=== PATIENT | male | born 1990 | race African-American/Black ===

== ENCOUNTER 2018-02-23 23:19 | Emergency (ER) | payer SELFPAY ==
[2018-02-23 23:26] VITALS: BP 126/85; PULSE 81; TEMP 98.1; BMI 21.9
--- NOTE | 2018-02-24 00:03 | PDOC ---
History of Present Illness - General Chief Complaint: Pain, Acute Stated Complaint: KNEE INJURY Time Seen by Provider: 02/23/18 23:57 History Source: Patient Exam Limitations: No Limitations Past History - Past Medical History Allergies/Adverse Reactions: Allergies Allergy/AdvReac Type Severity Reaction Status Date / Time No Known Allergies Allergy Verified 02/23/18 23:26 Home Medications: Ambulatory Orders Ondansetron [Zofran Odt -] 4 mg SL TID #10 od.tablet 03/10/15 Ibuprofen 600 mg PO QID PRN #28 tablet 02/24/18 Ibuprofen [Motrin -] 600 mg PO TID PRN #90 tablet MDD 3 02/24/18 - Suicide/Smoking/Psychosocial Hx Smoking Status: No Smoking History: Never smoked Have you smoked in the past 12 months: No Number of Cigarettes Smoked Daily: 4 Information on smoking cessation initiated: No 'Breaking Loose' booklet given: 09/24/13 Hx Alcohol Use: No Drug/Substance Use Hx: No Substance Use Type: Marijuana *Physical Exam - Vital Signs Last Vital Signs Temp Pulse Resp BP Pulse Ox 98.1 F 81 18 126/85 100 02/23/18 23:23 02/23/18 23:23 02/23/18 23:23 02/23/18 23:23 02/23/18 23:23 Moderate Sedation - Procedure Monitoring Vital Signs: Procedure Monitoring Vital Signs Temperature 98.1 F 02/23/18 23:23 Pulse Rate 81 02/23/18 23:23 Respiratory Rate 18 02/23/18 23:23 Blood Pressure 126/85 02/23/18 23:23 O2 Sat by Pulse Oximetry (%) 100 02/23/18 23:23 *DC/Admit/Observation/Transfer Diagnosis at time of Disposition: Knee pain Qualifiers: Chronicity: unspecified Laterality: left Qualified Code(s): M25.562 - Pain in left knee - Discharge Dispostion Disposition: HOME Decision to Admit order: No - Prescriptions Prescriptions: Ibuprofen 600 mg PO QID PRN #28 tablet PRN Reason: Pain Ibuprofen [Motrin -] 600 mg PO TID PRN #90 tablet MDD 3 PRN Reason: Pain - Referrals Referrals: Earlene Bucio MD [Primary Care Provider] - Ashok Fall MD [Staff Physician] - - Patient Instructions Printed Discharge Instructions: Knee Sprain Additional Instructions: you should follow up wtih an orthopedist. call to schedule. see referral information for dr. Fall. take motrin 600 mg every 8 hrs as needed for pain. wear immobilizer for support and comfort. use crutches as needed, return for any problems or concerns. - Post Discharge Activity Forms/Work/School Notes: Back to Work
--- NOTE | 2018-02-24 00:04 | PDOC ---
Attending Attestation - Resident Resident Name: [email or web address] - ED Attending Attestation I have performed the following: I have examined & evaluated the patient, The case was reviewed & discussed with the resident, I agree w/resident's findings & plan, Exceptions are as noted - HPI HPI: 02/24/18 00:56 27 yo M s/p injury to left knee. pt was doing a dance move called needle and thread, and fell on his leftknee. twisted and landed on it. now ambulating with pain. no associated eccymosis or swelling. did not hit head in fall. no hip or ankle pain. no f/c. pain moderate. no prior knee injuries. - Physicial Exam PE: 02/24/18 00:57 awake alert lungs clear bilaterally heart rrr no mrg abd soft nt nd. skin warmand dry. head atraumatic. leftknee ttp medial , no laxity. patellar and quad tendon intact. 5/5 extension flexion. no laxity. no effusion. ankle nt from. - Medical Decision Making 02/24/18 00:59 plan differential fx vs internal injury. plan xray knee if negative. immobilizer and motrin crutches as needed. 02/24/18 00:59 xray negative. dc home with knee immobilizer.
[2018-02-24] MEDS ORDERED: KETOROLAC TROMETHAMINE 15 MG/ML VIAL IM ONE (00:07)
[2018-02-24] MEDS ORDERED: KETOROLAC TROMETHAMINE 30 MG/1 ML VIAL ONE (00:11)
== END 2018-02-24 01:13 | disposition home or self-care (01) ==
LOC: JER 23:19
PROC: 3E0233Z Introduction of Anti-inflammatory into Muscle, Percutaneous Approach (ICD-10-PCS; principal; 2018-02-23)
DX: M25.562 Pain in left knee (principal); Z72.0 Tobacco use
CPT/HCPCS: 73562-TC-LT-FY; 99283-25